=== PATIENT | female | born 1940 | race Caucasian/White ===

== ENCOUNTER 2016-07-09 17:34 | Emergency (ER) | payer MEDICARE ==
[~2016-07-09 17:34] MED LIST: ACETAMINOPHEN500 M4 PO; AMLODIPINE BESY10 M1 PO; ASPIRIN EC81 MG PO; ASPIRIN325 M3 PO; ASPIRIN81 M1 PO; BACTRIM DS TAB1 EAC2; CALCIUM CITRAT1 EA20 PO; CRANBERRY PLUS1 EAC3 PO; CYCLOBENZAPRINE10 M1 PO; HOLD THE FOLLOWING:; KEFLEX500 M4 PO; KRILL OIL500 M1 PO; LISINOPRIL20 M1 PO; MELOXICAM7.5 M1 PO; NORCO 5-325 TA1 EACH PO; OS-CAL 500+D31 EAC1 PO; PROTONIX40 M2 PO; SIMVASTATIN20 M1 PO; TRAMADOL HCL50 M2 PO; ULTRAM50 M1 PO; WOMEN'S DAILY1 EAC5 PO
== END 2016-07-09 17:40 ==
LOC: EDMED 17:34
DX: M47.9 Spondylosis, unspecified (principal); Z96.642 Presence of left artificial hip joint